=== PATIENT | female | born 2000 | race Caucasian/White ===

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

== ENCOUNTER 2021-04-03 11:32 | Emergency (ER) | payer SELFPAY ==
[~2021-04-03] VITALS: Ht 170.2 cm; Wt 83.0 kg
--- NOTE | 2021-04-03 13:57 | PHYS DOC ---
Past History Past Medical History: Anxiety, Depression, Other (CLAUDETTE WESTON) Past Surgical History: No Surgical History (CLAUDETTE WESTON) Alcohol Use: Rarely Drug Use: Marijuana (CLAUDETTE WESTON) General Adult EDM: Chief Complaint: VAGINAL BLEEDING HPI: HPI: Patient is a 21 year old A0 female who presents with 1 day history of vaginal bleeding after a positive test last week. She states the bleeding began just prior to arrival and is consistent with what she would call a "light period." Patient reports associated abdominal cramping and nausea. Patient has been able to keep fluids down, but has decreased p.o. intake of food. Patient reports that since December (4 months ago), she has lost approximately 20 pounds. First day of her last period was February 09, 2021. (CLAUDETTE WESTON) Review of Systems: Review of Systems: Constitutional: Denies fever, chills or generalized weakness Eyes: Denies change in visual acuity, visual field deficits or discharge HENT: Denies ear pain, nasal congestion or sore throat Respiratory: Denies cough or shortness of breath Cardiovascular: Denies chest pain, palpitations or edema GI: See HPI : See HPI Musculoskeletal: Denies back pain or joint pain Integument: Denies rash or other skin lesion Neurologic: Denies headache, focal weakness or sensory changes (CLAUDETTE WESTON) Current Medications: Current Meds: Current Medications Medications (Trade) Dose Ordered Sig/Riley Start Time Stop Time Status Last Admin Dose Admin Acetaminophen (Tylenol) 650 mg 1X ONCE 04/03/21 14:00 04/03/21 14:01 Ondansetron HCl (Zofran) 4 mg 1X ONCE 04/03/21 14:00 04/03/21 14:01 Sodium Chloride 1,000 ml @ 1,000 mls/hr 1X ONCE 04/03/21 14:00 04/03/21 14:59 (CLAUDETTE WESTON) Allergies: Allergies: Allergies Coded Allergies Type Severity Reaction Last Updated Verified No Known Drug Allergies 07/29/17 No (CLAUDETTE WESTON) Physical Exam: PE: Constitutional: Well developed, well nourished, no acute distress, non-toxic appearance. Cardiovascular: Heart rate regular rhythm, no murmur. Lungs & Thorax: Bilateral breath sounds clear to auscultation. Abdomen: Bowel sounds normal, soft, diffuse tenderness, no masses, no pulsatile masses, no peritoneal signs, nonsurgical abdomen. Skin: Warm, dry, no erythema, no rash. Back: No step-offs, no tenderness, no CVA tenderness. Neurologic: Alert and oriented x4, steady and symmetrical gait, no focal deficits noted. (CLAUDETTE WESTON) Current Patient Data: Labs: Laboratory Tests Test 04/03/21 13:30 04/03/21 13:42 04/03/21 13:57 Urine Collection Type Unknown Urine Color Yellow Urine Clarity Turbid Urine pH 7.0 Urine Specific [place] 1.025 Urine Protein 30 mg/dl (NEG-TRACE) Urine Glucose (UA) Neg mg/dL (NEG) Urine Ketones (Stick) Neg mg/dL (NEG) Urine Blood Large (NEG) Urine Nitrite Pos (NEG) Urine Bilirubin Small (NEG) Urine Urobilinogen Dipstick 1.0 mg/dL (0.2 mg/dL) Urine Leukocyte Esterase Large (NEG) Urine RBC 6-10 /HPF (0-2) Urine WBC 20-40 /HPF (0-4) Urine Squamous Epithelial Cells None /LPF Urine Bacteria Many /HPF (0-FEW) Bedside Urine HCG, Qualitative hcg positive (Negative) White Blood Count 7.9 x10^3/uL (4.0-11.0) Red Blood Count 4.58 x10^6/uL (3.50-5.40) Hemoglobin 14.8 g/dL (12.0-15.5) Hematocrit 44.0 % (36.0-47.0) Mean Corpuscular Volume 96 fL (79-100) Mean Corpuscular Hemoglobin 32 pg (25-35) Mean Corpuscular Hemoglobin Concent 34 g/dL (31-37) Red Cell Distribution Width 13.6 % (11.5-14.5) Platelet Count 376 x10^3/uL (140-400) Neutrophils (%) (Auto) 67 % (31-73) Lymphocytes (%) (Auto) 24 % (24-48) Monocytes (%) (Auto) 7 % (0-9) Eosinophils (%) (Auto) 2 % (0-3) Basophils (%) (Auto) 1 % (0-3) Neutrophils # (Auto) 5.3 x10^3uL (1.8-7.7) Lymphocytes # (Auto) 1.9 x10^3/uL (1.0-4.8) Monocytes # (Auto) 0.6 x10^3/uL (0.0-1.1) Eosinophils # (Auto) 0.1 x10^3/uL (0.0-0.7) Basophils # (Auto) 0.1 x10^3/uL (0.0-0.2) Maternal Serum HCG Beta Subunit 24 mIU/mL (0-6) Sodium Level 141 mmol/L (136-145) Potassium Level 3.5 mmol/L (3.5-5.1) Chloride Level 105 mmol/L (98-107) Carbon Dioxide Level 26 mmol/L (21-32) Anion Gap 10 (6-14) Blood Urea Nitrogen 7 mg/dL (7-20) Creatinine 0.7 mg/dL (0.6-1.0) Estimated GFR (Cockcroft-Gault) 103.7 BUN/Creatinine Ratio 10 (6-20) Glucose Level 85 mg/dL (70-99) Calcium Level 8.8 mg/dL (8.5-10.1) Total Bilirubin 0.4 mg/dL (0.2-1.0) Aspartate Amino Transf (AST/SGOT) 23 U/L (15-37) Alanine Aminotransferase (ALT/SGPT) 49 U/L (14-59) Alkaline Phosphatase 69 U/L (46-116) Total Protein 6.7 g/dL (6.4-8.2) Albumin 3.8 g/dL (3.4-5.0) Albumin/Globulin Ratio 1.3 (1.0-1.7) Vital Signs: VS - Last 72 Hours, by Label Date Time Temp Pulse Resp B/P (MAP) Pulse Ox O2 Delivery O2 Flow Rate FiO2 04/03/21 14:21 98.5 72 18 121/61 (81) 99 Room Air (WESTONCLAUDETTE PA) Radiology/Procedures: Radiology/Procedures: PROCEDURE: OB <14 WKS W/TV EXAMINATION: US OB <14 WKS +TV INDICATION: 21 years, Female, vaginal bleeding, positive test. COMPARISON: None TECHNIQUE: Trans abdominal and transvaginal ultrasound of the pelvis was performed with grayscale, spectral, and color doppler imaging. FINDINGS: Beta hCG levels were not available to time of dictation. UTERUS: Measures: 7.5 x 3.5 x 4.1 cm. Uterus is normal in size and morphology. Uterine/Endometrial Morphology: Unremarkable with no evidence of intrauterine Endometrial Thickness: 8 mm. RIGHT OVARY/ADNEXA: Measures: 2.2 x 1.3 x 1.6 cm. Right Ovarian Morphology: Unremarkable. Right Ovarian Color And Spectral Doppler Flow: Normal. LEFT OVARY/ADNEXA: Measures: 2.3 x 1.2 x 2.3 cm Left Ovarian Morphology: Unremarkable. Left Ovarian Color And Spectral Doppler Flow: Normal. OTHER: Fluid/Cul-De-Sac: No significant free pelvic fluid IMPRESSION: Unremarkable pelvic ultrasound. No sonographic findings of intrauterine or ectopic . Recommend short interval follow-up with serial beta-hCGs and INSURANCE VERIFIER to exclude early ectopic . Electronically signed by: Jovani Teixeira DO (04/03/2021 2:52 PM) [id number] (CLAUDETTE WESTON) Heart Score: C/O Chest Pain: No (CLAUDETTE WESTON) Course & Med Decision Making: Course & Med Decision Making Pertinent Labs and Imaging studies reviewed. (See chart for details) Patient is a 21-year-old female who had a positive test last week and presents today with light vaginal bleeding. Work-up today will include labs, transvaginal ultrasound, urinalysis. Patient urine test did show positive, however her serum beta hCG level was 24 and there is no evidence of on transvaginal ultrasound. Patient is advised to follow-up with Dr. Wilson, INSURANCE VERIFIER for further evaluation and management. Patient will be treated for urinary tract infection and given her scription for Zofran for her nausea. Patient understands and is agreeable to discharge plan. (CLAUDETTE WESTON) Course & Med Decision Making I advised my PA to inform pt to repeat hcg level in 48 hours (JAKUB BUTT DO) Dragon Disclaimer: Dragon Disclaimer: This electronic medical record was generated, in whole or in part, using a voice recognition dictation system. (CLAUDETTE WESTON) Departure Departure: Impression: Primary Impression: Urinary tract infection Disposition: HOME / SELF CARE / HOMELESS Condition: STABLE Referrals: PCP,NO (PCP) JESSIE WILSON MD Patient Instructions: Urinary Tract Infection, [id number] Additional Instructions: EMERGENCY DEPARTMENT GENERAL DISCHARGE INSTRUCTIONS Thank you for coming to [facility] (ED) today and trusting us with you care. We trust that you had a positivie experience in our Emergency Department. If you wish to speak to the department management, you may call the director at . YOUR FOLLOW UP INSTRUCTIONS ARE FOLLOWS: 1. Do you have a private doctor? If you do not have a private doctor, please ask for a resource list of physicians or clinics that may be able to assist you with follow up care. 2. The Emergency Physician has interpreted your imaging studies. The collection specialist also reviewed them. If there is a change in the findings, you will be notified in 48 hours when at all possible. 3. A lab test or culture has been done, your results will be reviewed and you will be notified if you need a change in treatment. 4. Follow-up with Dr. Wilson, whose contact information is listed above, for repeat serum beta hCG measurement. ADDITIONAL INSTRUCTIONS AND INFORMATION: 1. Your care today has been supervised by a physician who is specially trained in emergency care. Many problems require more than one evaluation for a complete diagnosis and treatment. We recommend that you schedule your follow up appointment as recommended to ensure complete treatment of you illness or injury. If you are unable to obtain follow up care and continue to have a problem, or if your condition worsens, we recommend that you return to the ED. 2. We are not able to safely determine your condition over the phone nor are we able to give sound medical advice over the phone. For these safety reasons, if you call for medical advice we will ask you to come to the ED for further evaluation. 3. If you have any questions regarding these discharge instructions please call the ED at . SAFETY INFORMATION: In the interest of safety, wellness, and injury prevention; we encourage you to wear your seat belt, if you smoke; quite smoking, and we encourage family to use a protective helmet for bicycling and other sporting events that present an increased risk for head injury. IF YOUR SYMPTOMS WORSEN OR NEW SYMPTOMS DEVELOP, OR YOU HAVE CONCERNS ABOUT YOUR CONDITION; OR IF YOUR CONDITION WORSENS WHILE YOU ARE WAITING FOR YOUR FOLLOW UP APPOINTMENT; EITHER CONTACT YOUR PRIMARY CARE DOCTOR, THE PHYSICIAN WHOSE NAME AND NUMBER YOU WERE GIVEN, OR RETURN TO THE ED IMMEDIATELY. Scripts Nitrofurantoin Monohyd/M-Cryst (MACROBID 100 MG CAPSULE) 100 Mg Capsule 100 CAP PO BID for UTI for 5 Days, #10 CAP Prov: CLAUDETTE WESTON 04/03/21 Ondansetron (ONDANSETRON ODT) 4 Mg Tab.rapdis 1 TAB PO PRN Q6-8HRS for n/v, #30 TAB Prov: CLAUDETTE WESTON 04/03/21 CLAUDETTE WESTON Apr 03, 2021 13:57 JAKUB BUTT DO Apr 03, 2021 16:54
[2021-04-03] MEDS ORDERED: IV NORMAL SALINE 1,000ML 1,000 ML IV ONE (14:00)
[2021-04-03] MEDS ORDERED: ACETAMINOPHEN 325 MG TABLET PO ONE (14:00)
[2021-04-03] MEDS ORDERED: ONDANSETRON PF 4 MG/2 ML VIAL. IVP ONE (14:00)
[2021-04-03 14:14] LABS: BACTERIA,URINE MANY /HPF (0-FEW); BILIRUBIN,URINE SMALL (NEG); CLARITY,URINE TURBID; COLOR,URINE YELLOW; GLUCOSE,URINE NEG (NEG); NITRITE,URINE POS (NEG); WBC,URINE 20-40 /HPF (0-4)
[2021-04-03 14:41] LABS: BASO # 0.1 x10^3/uL (0.0-0.2); BASO % 1 % (0-3); EOS # 0.1 x10^3/uL (0.0-0.7); EOS % 2 % (0-3); HEMOGLOBIN 14.8 g/dL (12.0-15.5); LYMPH # 1.9 x10^3/uL (1.0-4.8); LYMPH % 24 % (24-48); MEAN CORPUSCULAR HEMOGLOBIN 32 pg (25-35); MEAN CORPUSCULAR HGB CONC 34 g/dL (31-37); MEAN CORPUSCULAR VOLUME 96 fL (79-100); MONO # 0.6 x10^3/uL (0.0-1.1); MONO % 7 % (0-9); NEUT # 5.3 x10^3uL (1.8-7.7); NEUT % 67 % (31-73); PLATELET COUNT 376 x10^3/uL (140-400); RED BLOOD COUNT 4.58 x10^6/uL (3.50-5.40); RED CELL DISTRIBUTION WIDTH 13.6 % (11.5-14.5); WHITE BLOOD COUNT 7.9 x10^3/uL (4.0-11.0)
--- NOTE | 2021-04-03 14:55 | RAD ---
EXAMINATION: US OB <14 WKS +TV INDICATION: 21 years, Female, vaginal bleeding, positive test. COMPARISON: None TECHNIQUE: Trans abdominal and transvaginal ultrasound of the pelvis was performed with grayscale, sp ectral, and color doppler imaging. FINDINGS: Beta hCG levels were not available to time of dictation. UTERUS: Measures: 7.5 x 3.5 x 4.1 cm. Uterus is normal in size and morphology. Uterine/Endometrial Morphology: Unremarkable with no evidence of intrauterine Endometrial Thickness: 8 mm. RIGHT OVARY/ADNEXA: Measures: 2.2 x 1.3 x 1.6 cm. Right Ovarian Morphology: Unremarkable. Right Ovarian Color And Spectral Doppler Flow: Normal. LEFT OVARY/ADNEXA: Measures: 2.3 x 1.2 x 2.3 cm Left Ovarian Morphology: Unremarkable. Left Ovarian Color And Spectral Doppler Flow: Normal. OTHER: Fluid/Cul-De-Sac: No significant free pelvic fluid IMPRESSION: Unremarkable pelvic ultrasound. No sonographic findings of intrauterine or ectopic . Recomme nd short interval follow-up with serial beta-hCGs and WOOD SHOP TEACHER to exclude early ectopic . Electronically signed by: Jovani Teixeria DO (04/03/2021 2:52 PM) [id number]
[2021-04-03 15:03] LABS: CALCIUM 8.8 mg/dL (8.5-10.1); CREATININE 0.7 mg/dL (0.6-1.0); GFR 103.7; POTASSIUM 3.5 mmol/L (3.5-5.1)
[2021-04-03 15:06] LABS: ALBUMIN 3.8 g/dL (3.4-5.0); ALBUMIN/GLOBULIN RATIO 1.3 (1.0-1.7); TOTAL BILIRUBIN 0.4 mg/dL (0.2-1.0); TOTAL PROTEIN 6.7 g/dL (6.4-8.2)
[2021-04-03] MEDS ORDERED: ONDA4TAB12 PO (16:02)
[2021-04-03] MEDS ORDERED: NITR100C62 PO (16:02)
[2021-04-03 16:27] VITALS: BP 133/80
== END 2021-04-03 16:31 | disposition home or self-care (01) ==
LOC: ER 11:32
DX: O23.41 Unspecified infection of urinary tract in pregnancy, first trimester (principal); N39.0 Urinary tract infection, site not specified; Z3A.00 Weeks of gestation of pregnancy not specified
CPT/HCPCS: 36415; 76801; 76817; 80053; 81001; 81025; 84702; 85025; 86900; 86901; 87077; 87086; 87186; 96361; 96374; 99284; J2405; J7030